=== PATIENT | female | born 1955 | race African-American/Black ===

== ENCOUNTER 2022-09-15 11:31 | Inpatient (IN) | payer OTHER ==
[~2022-09-15] VITALS: Ht 165.1 cm; Wt 90.7 kg
[2022-09-15] MEDS ORDERED: PIPERACILLIN/TAZOBACTAM 3.375GM/50ML PREMIX IV ONE (17:15)
[2022-09-15] MEDS ORDERED: PIPERACILLIN/TAZ 3.375G PREMIX 50 ML IV NR (17:15)
[2022-09-15] MEDS ORDERED: VANCOMYCIN 1G PREMIX 200 ML IV SCH (17:15)
[2022-09-15] MEDS ORDERED: SODIUM CHLORIDE 0.9% 1,000 ML IV ONE (17:15)
[2022-09-15 17:45] LABS: BASOPHILS % 0.4 % (0.0-2.0); EOSINOPHILS % 2.6 % (0.0-5.0); HEMATOCRIT. 44.1 % (36.0-48.0); HEMOGLOBIN. 14.3 g/dL (12.0-16.0); LYMPHOCYTES % 41.4 % (20.0-50.0); MEAN CORPUSCULAR HEMOGLOBIN 28.9 pg (28.0-32.0); MEAN PLATELET VOLUME 8.2 fl (7.4-10.4); NEUTROPHILS % 48.6 % (40.0-76.0); PLATELET 352 x1000/uL (130-400); RED BLOOD CELL COUNT 4.96 mill/uL (4.2-5.4); RED CELL DISTRIBUTION WIDTH 14.4 % (11.6-14.6)
[2022-09-15 17:55] LABS: CHLORIDE 111 mEq/L (98-107)
[2022-09-15] MEDS ORDERED: IPRATROPIUM/ALBUTEROL 0.5-3(2.5)MG/3ML NEB HHN PRN (21:15)
[2022-09-15] MEDS ORDERED: ONDANSETRON HCL 4MG/2ML INJ IV PRN (21:15)
[2022-09-15] MEDS ORDERED: CLONIDINE 0.1MG TABLET PO PRN (21:15)
[2022-09-15] MEDS ORDERED: ACETAMINOPHEN 325MG TABLET PO PRN ×2 (21:15)
[2022-09-15] MEDS ORDERED: APIXABAN 5 MG TABLET PO SCH (23:00)
[2022-09-15] MEDS: GABAPENTIN 100MG CAPSULE PO SCH (23:01)
[2022-09-16] VITALS: BP 124/76
[2022-09-16] MEDS: APIXABAN 5 MG TABLET PO SCH ×3 (01:13→18:18)
[2022-09-16] MEDS: SODIUM CHLORIDE 0.45% 1,000 ML IV SCH ×2 (01:13→13:13)
[2022-09-16 01:33] VITALS: BP 124/76
[2022-09-16] MEDS ORDERED: LEVO75TA7 PO (02:00)
[2022-09-16] MEDS ORDERED: APIX5TAB PO (02:00)
[2022-09-16] MEDS ORDERED: ATOR-2 PO (02:01)
[2022-09-16] MEDS ORDERED: GABA-529 MT (02:02)
[2022-09-16] MEDS ORDERED: MULT-1146 PO (02:03)
[2022-09-16] MEDS ORDERED: ASCO100T12 MT (02:04)
[2022-09-16] MEDS: GABAPENTIN 100MG CAPSULE PO SCH ×3 (05:31→22:18)
[2022-09-16] MEDS: FAMOTIDINE 20MG TABLET PO SCH ×2 (09:52→22:18)
[2022-09-16 12:00] VITALS: BP 116/84
[2022-09-16 12:50] LABS: D-DIMER 0.31 mg/L FEU (<0.50); INR 1.1; PROTHROMBIN TIME 11.4 sec (9.6-11.0)
[2022-09-16 12:51] LABS: CHLORIDE 113 mEq/L (98-107)
[2022-09-16 12:53] LABS: BASOPHILS % 0.8 % (0.0-2.0); EOSINOPHILS % 2.9 % (0.0-5.0); HEMATOCRIT. 44.2 % (36.0-48.0); HEMOGLOBIN. 14.5 g/dL (12.0-16.0); LYMPHOCYTES % 35.4 % (20.0-50.0); MEAN CORPUSCULAR HEMOGLOBIN 29.1 pg (28.0-32.0); MEAN CORPUSCULAR VOLUME 88.6 fL (81.0-99.0); MEAN PLATELET VOLUME 8.5 fl (7.4-10.4); NEUTROPHILS % 50.9 % (40.0-76.0); PLATELET 367 x1000/uL (130-400); RED CELL DISTRIBUTION WIDTH 14.5 % (11.6-14.6)
[2022-09-16 13:05] LABS: CREATINE KINASE 144 IU/L (26-192); CREATINE KINASE MB FRACTION 1.9 ng/mL (0.5-3.6); HDL CHOLESTEROL 52 mg/dL (40-59); LDL CHOLESTEROL 78 mg/dL (5-100); PHOSPHORUS 2.7 mg/dL (2.5-4.9); T4 FREE 0.97 ng/dL (0.76-1.46)
[2022-09-16 13:27] LABS: VITAMIN B12 SERUM 446 pg/mL (211-911)
[2022-09-16 13:29] LABS: FOLIC ACID (FOLATE) SERUM > 20.00 ng/mL (>5.38)
[2022-09-16] MEDS ORDERED: HYDROCODONE/ACETAMINOPHEN 7.5/325MG TABLET PO PRN (14:45)
[2022-09-16] MEDS ORDERED: ACETAMINOPHEN 325MG TABLET PO PRN (14:45)
[2022-09-16] MEDS ORDERED: HYDROCODONE/ACETAMINOPHEN 5/325MG TABLET PO PRN (14:45)
[2022-09-16] MEDS ORDERED: NALOXONE HCL 0.4MG/ML VIAL IV PRN (15:00)
[2022-09-16 16:00] VITALS: BP 95/60
[2022-09-16] MEDS ORDERED: CEFTRIAXONE 2GM DUPLEX 50 ML IV SCH (18:00)
[2022-09-16] MEDS ORDERED: ATORVASTATIN CALCIUM 40MG TABLET PO SCH (21:00)
[2022-09-16] MEDS: METRONIDAZOLE 500MG TABLET PO SCH (22:18)
[2022-09-16] MEDS: SODIUM HYPOCHLORITE 0.125% 473ML SOLUTION TOP SCH (22:19)
[2022-09-17] VITALS: BP 146/72
[2022-09-17] MEDS: SODIUM CHLORIDE 0.45% 1,000 ML IV SCH (01:21)
[2022-09-17 04:00] VITALS: BP 143/70
[2022-09-17 06:30] LABS: BASOPHILS % 0.4 % (0.0-2.0); EOSINOPHILS % 3.3 % (0.0-5.0); HEMATOCRIT. 40.9 % (36.0-48.0); HEMOGLOBIN. 13.6 g/dL (12.0-16.0); LYMPHOCYTES % 33.6 % (20.0-50.0); MEAN CORPUSCULAR HEMOGLOBIN 29.3 pg (28.0-32.0); MEAN CORPUSCULAR VOLUME 88.2 fL (81.0-99.0); MEAN PLATELET VOLUME 8.8 fl (7.4-10.4); MONOCYTES % 8.8 % (2.0-8.0); NEUTROPHILS % 53.9 % (40.0-76.0); PLATELET 337 x1000/uL (130-400); RED BLOOD CELL COUNT 4.64 mill/uL (4.2-5.4); RED CELL DISTRIBUTION WIDTH 14.3 % (11.6-14.6)
[2022-09-17] MEDS: METRONIDAZOLE 500MG TABLET PO SCH ×2 (06:48→13:41)
[2022-09-17] MEDS: GABAPENTIN 100MG CAPSULE PO SCH ×2 (06:48→13:41)
[2022-09-17] MEDS ORDERED: LEVOTHYROXINE SODIUM 75MCG TABLET PO SCH (07:20)
[2022-09-17 07:50] LABS: CHLORIDE 114 mEq/L (98-107)
[2022-09-17 08:00] VITALS: BP 156/88
[2022-09-17] MEDS: APIXABAN 5 MG TABLET PO SCH (09:40)
[2022-09-17] MEDS: FAMOTIDINE 20MG TABLET PO SCH (09:40)
[2022-09-17] MEDS: SODIUM HYPOCHLORITE 0.125% 473ML SOLUTION TOP SCH ×2 (09:43→16:27)
[2022-09-17 12:00] VITALS: BP 152/90
[2022-09-17 16:00] VITALS: BP 120/71
[2022-09-17 16:27] VITALS: BP 120/71
== END 2022-09-17 17:00 | disposition home or self-care (01) | DRG 637 ==
LOC: ER 11:31 → 6EST 17:00 → ENRESERV 18:51 → EDBEDREQTM 19:06 → EDBEDREQSVC 19:06 → EDBEDREQ 19:06
PROVIDERS: ADMIT Hospitalist; ATTEND Hospitalist
DX: E11.69 Type 2 diabetes mellitus with other specified complication (principal); L89.153 Pressure ulcer of sacral region, stage 3; C25.9 Malignant neoplasm of pancreas, unspecified; E46 Unspecified protein-calorie malnutrition; M86.60 Other chronic osteomyelitis, unspecified site; I82.512 Chronic embolism and thrombosis of left femoral vein; E03.9 Hypothyroidism, unspecified; E11.65 Type 2 diabetes mellitus with hyperglycemia; E66.9 Obesity, unspecified; I10 Essential (primary) hypertension; Z68.33 Body mass index [BMI] 33.0-33.9, adult; Z95.828 Presence of other vascular implants and grafts; G62.0 Drug-induced polyneuropathy; N28.1 Cyst of kidney, acquired; M51.27 Other intervertebral disc displacement, lumbosacral region; M48.061 Spinal stenosis, lumbar region without neurogenic claudication; G89.29 Other chronic pain; D72.829 Elevated white blood cell count, unspecified; Z79.899 Other long term (current) drug therapy; Z79.01 Long term (current) use of anticoagulants; Z79.4 Long term (current) use of insulin; Z90.81 Acquired absence of spleen; Z90.710 Acquired absence of both cervix and uterus; Z90.411 Acquired partial absence of pancreas; T45.1X5A Adverse effect of antineoplastic and immunosuppressive drugs, initial encounter
CPT/HCPCS: 36415; 71045; 72141; 72146; 72148; 74176; 80048; 80053; 80061; 82550; 82553; 82607; 82746; 82962; 83036; 83605; 83735; 83880; 84100; 84145; 84439; 84443; 84481; 85025; 85379; 85651; 93306; 93970; 97162; 99285; C1893; J0696; J2543; J3370; J7030

== ENCOUNTER 2022-11-16 11:54 | Emergency (ER) | payer OTHER, MEDICAID ==
[~2022-11-16] VITALS: Ht 160 cm; Wt 95.0 kg
[~2022-11-16 11:54] MED LIST: APIX5TAB PO; ASCO100T12 MT; ATOR-2 PO; GABA-529 MT; LEVO75TA7 PO; MULT-1146 PO
[2022-11-16 12:49] LABS: BASOPHILS % 0.5 % (0.0-2.0); EOSINOPHILS % 2.3 % (0.0-5.0); HEMATOCRIT. 44.3 % (36.0-48.0); HEMOGLOBIN. 14.9 g/dL (12.0-16.0); LYMPHOCYTES % 27.6 % (20.0-50.0); MEAN CORPUSCULAR HEMOGLOBIN 29.7 pg (28.0-32.0); MEAN CORPUSCULAR VOLUME 88.6 fL (81.0-99.0); MEAN PLATELET VOLUME 8.3 fl (7.4-10.4); MONOCYTES % 8.1 % (2.0-8.0); NEUTROPHILS % 61.5 % (40.0-76.0); PLATELET 346 x1000/uL (130-400); RED CELL DISTRIBUTION WIDTH 14.7 % (11.6-14.6)
[2022-11-16 12:57] LABS: CHLORIDE 111 mEq/L (98-107)
[2022-11-16 14:03] LABS: CLARITY URINE CLEAR (CLEAR); COLOR URINE YELLOW (YELLOW); KETONES URINE NEGATIVE (NEGATIVE); LEUKOCYTE ESTERASE URINE NEGATIVE (NEGATIVE); NITRITE URINE NEGATIVE (NEGATIVE); OCCULT BLOOD URINE NEGATIVE (NEGATIVE); PH URINE 6.5 (4.5-8.0); PROTEIN URINE NEGATIVE (NEGATIVE); SPECIFIC GRAVITY URINE 1.015 (1.005-1.030); UROBILINOGEN URINE 0.2 E.U./dL (0.2-1.0)
[2022-11-16 15:48] VITALS: BP 136/74
== END 2022-11-16 15:50 | disposition home or self-care (01) ==
LOC: ER 13:51
DX: L89.151 Pressure ulcer of sacral region, stage 1 (principal); E11.9 Type 2 diabetes mellitus without complications; Z98.890 Other specified postprocedural states
CPT/HCPCS: 36415; 80053; 81003; 85025; 99283